=== PATIENT | male | born 1990 | race African-American/Black ===

== ENCOUNTER 2021-03-02 10:00 | Emergency (ER) | payer OTHER ==
[~2021-03-02] VITALS: Ht 182.9 cm; Wt 113.4 kg
[2021-03-02] MEDS ORDERED: SERTRALINE20 MG/1 ML (10:18)
[2021-03-02] MEDS ORDERED: TRAZODONE HCL150 MG (10:18)
== END 2021-03-02 15:45 | disposition home or self-care (01) ==
LOC: ER 10:00
DX: B34.9 Viral infection, unspecified (principal); A49.3 Mycoplasma infection, unspecified site; Z03.818 Encounter for observation for suspected exposure to other biological agents ruled out